=== PATIENT | female | born 1945 | race Caucasian/White ===

== ENCOUNTER → 2021-05-10 | Outpatient (CLI) | payer MEDICARE | END | disposition home or self-care (01) | LOC: LABPAT 16:24 | PROVIDERS: ATTEND Orthopaedic Surgery | DX: Z01.812 Encounter for preprocedural laboratory examination (principal); M16.11 Unilateral primary osteoarthritis, right hip | CPT/HCPCS: 87070 ==

== ENCOUNTER 2021-05-18 06:30 | Day surgery (SDC) | payer MEDICARE ==
[2021-05-14 15:32] VITALS: BMI 20.2
--- NOTE | 2021-05-17 10:24 | HP ---
HISTORY AND PHYSICAL CHIEF COMPLAINT: Right hip pain. HISTORY OF PRESENT ILLNESS: The patient is a 75-year-old retired female who presents with progressive right hip pain for the past several years, worsening over the past couple months. She has groin pain along with difficulty with weightbearing. She has been limping. She notes it severely limits her normal function and activities. PAST MEDICAL HISTORY: Significant for hypertension and hypercholesterolemia in addition to polymyalgia rheumatica. PAST SURGICAL HISTORY: Negative. CURRENT MEDICATIONS: Amlodipine, atenolol, prednisone and simvastatin. ALLERGIES: SHE DENIES DRUG ALLERGIES. FAMILY HISTORY: Significant for cancer. SOCIAL HISTORY: Negative for current tobacco or alcohol use. REVIEW OF SYSTEMS: Sixteen-point review of systems is reviewed and is significant for multiple joint complaints. PHYSICAL EXAMINATION: On examination, the patient is approximately 5 feet 2 inches, 112 pounds of mesomorphic habitus. HEENT exam is nonfocal. Neck is supple. Passive motion of the right hip: Flexion 75 degrees. External rotation of the hip: Flexion 45 degrees. Internal rotation is zero degrees with pain. She has shortening of the right lower extremity compared to the left. She has a Trendelenburg gait. Her distal neurovascular exam appears intact in the right lower extremity. X-rays to include AP and lateral views of the right hip obtained in the office show severe osteoarthrosis with [id number] changes and subchondral sclerosis. IMPRESSION: Right hip severe osteoarthrosis. RECOMMENDATIONS: I talked to the patient at length regarding her condition along with treatment options. At this point she is quite symptomatic and limited because of pain related to her right hip osteoarthrosis despite conservative measures. After thorough discussion, she opted to proceed with surgery. We will plan to proceed with right total hip arthroplasty utilizing a direct anterior approach. We will institute DVT prophylaxis postoperatively. Risks and benefits were discussed at length in layman's terms. MMODL / IJN: [id number] /
[~2021-05-18 06:30] MED LIST: ACETAMINOPHEN TAB 500 MG TAB PO PRN; MELOXICAM 7.5 MG TAB PO PRN; TRANEXAMIC ACID 1,000 MG in SODIUM CHLORIDE 0.9% 100 ML IVPB PRN
[2021-05-18] MEDS: LACTATED RINGERS 1,000 ML IV SCH ×3 (07:05→20:43)
[2021-05-18] MEDS ORDERED: LIDOCAINE 1% (10MG/ML) FOR IV START INTRADERMA ONE (07:05)
[2021-05-18 07:20] LABS: Glucose,Whole Blood 88 mg/dL (75-99)
[2021-05-18] MEDS: DEXAMETHASONE SOD PHOSPHATE 4 MG/ML 1 ML VIAL IV ONE ×2 (07:23→12:37)
[2021-05-18] MEDS: ONDANSETRON 4 MG/2 ML VIAL IVP ONE ×2 (07:23→12:38)
[2021-05-18] MEDS ORDERED: PROPOFOL 10 MG/ML 20 ML VIAL IV ONE (07:58)
[2021-05-18] MEDS ORDERED: SODIUM CHLORIDE 0.9% 100 ML BAG ONE (07:58)
[2021-05-18] MEDS ORDERED: MIDAZOLAM 2 MG/2 ML VIAL ONE (07:58)
[2021-05-18] MEDS ORDERED: KETAMINE 10 MG/ML 20 ML VIAL ONE (07:58)
[2021-05-18] MEDS ORDERED: PHENYLEPHRINE-0.9% NACL SYG 1,000 MCG/10 ML SYRINGE ONE (07:58)
[2021-05-18] MEDS ORDERED: TRANEXAMIC ACID 1,000 MG/10 ML VIAL ONE (07:58)
[2021-05-18] MEDS ORDERED: ePHEDrine SULFATE/0.9% NACL/PF 50 MG/5 ML SYRINGE IV ONE (07:58)
[2021-05-18 08:08] LABS: Basophils % (A) 0 %; Eosinophils # (A) 0.1 k/uL (0-0.7); Eosinophils % (A) 1 %; HCT 40.7 % (34.0-46.0); HGB 13.4 gm/dL (11.4-16.0); Lymphocytes # (A) 2.1 k/uL (1.0-4.8); Lymphocytes % (A) 18 %; Monocytes # (A) 0.5 k/uL (0-1.0); Monocytes % (A) 4 %; Neutrophils # (A) 8.8 k/uL (1.3-7.7); Neutrophils % (A) 76 %; Platelet Count 349 k/uL (150-450); RBC 4.19 m/uL (3.80-5.40); RDW 13.4 % (11.5-15.5); WBC 11.5 k/uL (3.8-10.6)
[2021-05-18] MEDS ORDERED: ceFAZolin 1,000 MG in SODIUM CHLORIDE 0.9% 1,000 ML IRRIGATION ONE (08:36)
[2021-05-18] MEDS ORDERED: HYDROmorphone 0.2 MG/1 ML SYRINGE IVP PRN (10:00)
[2021-05-18] MEDS ORDERED: HYDROcodone/APAP 7.5-325MG 1 EACH TAB PO PRN (10:00)
[2021-05-18] MEDS ORDERED: NALOXONE 0.4 MG/ML 1 ML VIAL IV PRN (10:00)
[2021-05-18] MEDS: HYDROmorphone 0.5 MG/0.5 ML SYRINGE IVP PRN ×2 (10:01→10:29)
--- NOTE | 2021-05-18 10:02 | P.OP ---
Date of Procedure: 05/18/21 Preoperative Diagnosis: Right hip severe osteoarthrosis Postoperative Diagnosis: Same Procedure(s) Performed: Right total hip arthroplastyanterior approachpress-fit Implants: Depuy Corail size 9, 125, standard collared femoral stem, 32+1 cobalt chrome femoral head, 50 mm [place] acetabular shell with neutral polyethylene liner. Anesthesia: spinal Surgeon: Dat Amaya French Edge Operator #1: Dorian Cronin Estimated Blood Loss (ml): 300 Pathology: other (Femoral head) Condition: stable Disposition: PACU Indications for Procedure: The patient's a 75-year-old female presents with progressive right hip pain secondary to osteoporosis despite previous conservative measures. A discussion of the risks and benefits of operative intervention versus continued conservative measures. The patient opted to proceed with surgery. Operative risks to include infection, neurovascular injury, development of blood clots, leg length discrepancy, fracture, possible component loosening/failure and need for subsequent procedures was discussed. Informed consent was obtained. Operative Findings: As below Description of Procedure: The patient was brought to the operating room, and after induction of spinal anesthesia was placed supine on the [place] table. Positioning was checked with fluoroscopy. The right hip was then prepped and draped in a normal fashion. A 12 cm incision was then made starting 2 fingerbreadths distal and 3 finger breaths posterior to the ASIS in line with the proximal femur. The skin was incised sharply. Subcutaneous tissues were divided sharply. Electrocautery was used for hemostasis. The fascia was split in line with skin incision. The interval between the sartorius and tensor fascia sowmya was then bluntly developed. The posterior fascia was opened with electrocautery. The lateral circumflex vessels were identified and cauterized prior to sectioning. A retractor was placed along the superior femoral neck as well as the anterior acetabular rim. A wide capsulotomy was performed. The neck cut was then made at a 45 angle to the shaft approximately 1 1/2 cm above the level of the lesser trochanter. The head was extracted. Attention was then paid towards preparing the acetabular. Anterior and posterior retractors were placed. The remaining capsular labral tissue sharply debrided clearly defining the acetabular margins. I began reaming with a 45 mm reamer taking care to initially medialize then reaming at 45 of abduction and 20 of anteversion. Sequential reaming is performed up to 49 mm. A trial 50 mm acetabular shell was inserted in the same orientation and was fully seated. There was good rim fit and stability. Positioning was checked with fluoroscopy. The final 50 mm acetabular shell was inserted again at 45 of abduction and 20 of anteversion. This was fully seated. There was good rim fit and stability. Again fluoroscopy was used to check the adequacy of placement. A neutral polyethylene liner was gently impacted. Care was taken to avoid any soft tissue interposition. Pulsatile lavage was utilized. Attention was then paid towards preparing the proximal femur. The central region was cleared of soft tissue. A canal finder was used to find the femoral canal. Sequential broaching was performed up to size 9 taking care to lateralize proximally. A calcar mill was used to fashion the medial calcar. There was good rotational stability. A 125 standard neck along with a 32 mm +1 head was placed. The hip was gently reduced. Fluoroscopy was used to check the adequacy of positioning along with leg lengths. I felt both were good. The hip was gently dislocated. The trial components were removed. The final size 9 collared standard press-fit femoral stem was inserted parallel to the posterior cortex. This was fully seated and there was good rotational stability. A 32 mm was 1 head was placed. This was gently impacted. The hip was then gently reduced. Final fluoroscopic view showed adequate placement implant along with yazidi of leg length. Stability was checked with 80 of external rotation and 60 of extension of the right hip. The wound was irrigated with sterile lavage. The fascia was closed with running 0 Vicryl suture. There was minimal drainage therefore a deep drain was not placed. The second dose of IV TXA was given. The subcutaneous tissues were reapproximated interrupted 2-0 Vicryl sutures. The skin was reapproximated with 3-0 subcuticular strata fix suture. Skin tape and adhesive was applied. A sterile dressing was applied. The patient was then awoken from sedation and transferred to recovery room in good condition. Blood loss was estimated at 300 mL. No complications were incurred. Sponge and needle counts were correct at the end of the case. Dorian MARI assisted during the major components is case to include exposure, bone resection, implantation, and closure.
--- NOTE | 2021-05-18 10:40 | XR ---
Limited right hip HISTORY: Status post right hip surgery Single frontal view of the right hip The patient is status post right hip arthroplasty. There is anatomic alignment. Lucencies present wit hin the soft tissues. Bone mineralization is reduced. IMPRESSION: Orthopedic follow-up
[2021-05-18] MEDS ORDERED: ONDANSETRON 4 MG/2 ML VIAL IVP ONE (11:03)
[2021-05-18] MEDS ORDERED: ONDANSETRON 4 MG/2 ML VIAL ONE (11:06)
[2021-05-18] MEDS ORDERED: LACTATED RINGERS 1,000 ML IV ONE (11:51)
--- NOTE | 2021-05-18 12:15 | XR ---
Fluoroscopy HISTORY: Hip arthroplasty 23 seconds fluoroscopy time supplied to the referring clinician. 2 intraoperative C-arm images docum ent the procedure. See dictated report from orthopedic surgery.
[2021-05-18] MEDS ORDERED: ONDANSETRON 4 MG/2 ML VIAL IVP PRN ×2 (12:22→19:36)
--- NOTE | 2021-05-18 14:27 | P.CONS ---
History of Present Illness - Reason for Consult Consult date: 05/18/21 - History of Present Illness HISTORY OF PRESENT ILLNESS This is a 75-year-old female patient of Dr. Ramirez with past medical history of hypertension, hyperlipidemia, polymyalgia rheumatica, osteoarthritis. Patient has been brought into the hospital under the care of Dr. Amaya status post right total hip arthroplasty, anterior approach. Patient is having postop nausea and vomiting. She states she is very susceptible and often has this with any procedure. Zofran has been ordered. Vital signs are stable. Blood pressure 139/74, heart rate 50, afebrile, pulse ox 99% on room air. WBC 11.5, hemoglobin 11.4, platelet count 349. Cuadra virus not detected. REVIEW OF SYSTEMS Constitutional: No fever, no chills, no night sweats. No weight change. No weakness, fatigue or lethargy. No daytime sleepiness. EENT: No headache. No blurred vision or double vision, no loss of vision. No loss of Hearing, no ringing in the ears, no dizziness. No nasal drainage or con gestion. No epistaxis. No sore throat. Lungs: No shortness of breath, cough, no sputum production. No wheezing. Cardiovascular: No chest pain, no lower extremity edema. No palpitations. No paroxysmal nocturnal dyspnea. No orthopnea. No lightheadedness or dizziness. No syncopal episodes. Abdominal: No abdominal pain. Reports nausea, reports vomiting. No diarrhea. No constipation. No bloody or tarry stools.. No loss of appetite. Genitourinary: No dysuria, increased frequency, urgency. No urinary retention. Musculoskeletal: No myalgias. No muscle weakness, no gait dysfunction, no f requent falls. No back pain. No neck pain. Mild right hip discomfort Integumentary: No wounds, no lesions. No rash or pruritus. No unusual bruising. No change in hair or nails. Neurologic: No aphasia. No facial droop. No change in mentation. No head injury. No headache. No paralysis. No paresthesia. Psychiatric: No depression. No anxiety. No mood swings. Endocrine: No abnormal blood sugars. No weight change. No excessive sweating or thirst. No cold intolerance. SOCIAL HISTORY Patient is a lifelong nonsmoker, no alcohol use, marijuana use or illicit drug u se. She lives at home with her . FAMILY HISTORY Mother at age 56 from uterine cancer. Father at age 86 from old age. Patient does not have any brothers. She has one sister that is 81 years of age with history of pacemaker and dementia. Patient has one daughter with melanoma and 3 sons with no major medical problems. PHYSICAL EXAMINATION Gen: This is a 35-year-old female. She is resting in bed appears to be somewhat uncomfortable secondary to nausea HEENT: Head is atraumatic, normocephalic. Pupils equal, round. Sclerae is anicteric. NECK: Supple. No JVD. No lymphadenopathy. No thyromegaly. LUNGS: Clear to auscultation. No wheezes or rhonchi. No intercostal retractions. HEART: Regular rate and rhythm. No murmur. ABDOMEN: Soft. Bowel sounds are present. No masses. No tenderness. EXTREMITIES: No pedal edema. No calf tenderness. Right hip surgical wound is covered with dressing. No breakthrough drainage or bleeding. NEUROLOGICAL: Patient is awake, alert and oriented x3. Cranial nerves 2 through 12 are grossly intact. ASSESSMENT AND PLAN 1. Osteoarthritis right hip status post right total hip arthroplasty, postop day #0. Continue pain management per orthopedics, PT and OT, incentive spirometry to reduce incidence of atelectasis and hospital-acquired pneumonia. 2. Postoperative nausea and vomiting, expected complication from surgery. Zofran 4 mg IV every 6 hours as needed. 3. Hypertension. Patient will be resumed on amlodipine 5 mg daily, atenolol 50 mg daily. 4. Hyperlipidemia. Continue simvastatin 20 mg at bedtime. 5. Polymyalgia rheumatica. Continue prednisone 7 mg daily. 6. Gastroesophageal reflux disease. Protonix 40 mg IV daily. 7. DVT prophylaxis. Patient is on Lovenox 40 mg subcu daily. Thank you kindly for this consultation, we will be happy to follow along with you. DISCHARGE PLAN Home. Impression and plan of care have been directed as dictated by the signing physician. Vera Landaverde nurse practitioner acting as scribe for signing physician. Past Medical History Past Medical History: Hyperlipidemia, Hypertension, Osteoarthritis (OA) Additional Past Medical History / Comment(s): polymyalgia rheumatica-daily steroids for the past 6-7 months History of Any Multi-Drug Resistant Organisms: None Reported Past Surgical History: Appendectomy Additional Past Surgical History / Comment(s): colonoscopy Past Anesthesia/Blood Transfusion Reactions: No Reported Reaction Past Psychological History: No Psychological Hx Reported Smoking Status: Never smoker Past Alcohol Use History: Occasional Past Drug Use History: None Reported - Past Family History Mother Family Medical History: No Reported History Medications and Allergies Home Medications Medication Instructions Recorded Confirmed Type Calcium Carbonate [Calcium] 600 mg PO DAILY 05/14/21 05/18/21 History Simvastatin [Zocor] 20 mg PO HS 05/14/21 05/18/21 History amLODIPine BESYLATE 5 mg PO DAILY 05/14/21 05/18/21 History atenoloL [Tenormin] 50 mg PO DAILY 05/14/21 05/18/21 History predniSONE 7 mg PO DAILY 05/14/21 05/18/21 History Allergies Allergy/AdvReac Type Severity Reaction Status Date / Time No Known Allergies Allergy Verified 05/14/21 15:11 Physical Exam Vitals: Vital Signs Temp Pulse Pulse Resp BP Pulse Ox 05/18/21 11:31 53 L 18 130/61 96 05/18/21 11:02 60 18 143/75 97 05/18/21 10:48 48 L 18 137/69 95 05/18/21 10:32 49 L 16 133/70 97 05/18/21 10:15 49 L 18 140/70 100 05/18/21 09:57 97.2 F L 63 16 96/61 99 05/18/21 06:58 98.1 F 63 16 146/76 99 Intake and Output 05/17/21 05/18/21 05/18/21 22:59 06:59 14:59 Intake Total 1051 Output Total 250 Balance 801 Intake: IV 1051 Output: Estimated Blood Loss 250 Other: Weight 51.2 kg 51.2 kg Results CBC & Chem 7: 05/18/21 07:40 Labs: Abnormal Lab Results - Last 24 Hours (Table) 05/18/21 Range/Units 07:40 WBC 11.5 H (3.8-10.6) k/uL Neutrophils # 8.8 H (1.3-7.7) k/uL
[2021-05-18] MEDS: HYDROcodone/APAP 5-325MG 1 EACH TAB PO PRN ×2 (15:20→23:39)
[2021-05-18] MEDS: PANTOPRAZOLE 40 MG/10 ML VIAL IVP SCH (15:20)
[2021-05-18] MEDS: METOCLOPRAMIDE 5 MG/ML 2 ML VIAL IVP SCH (19:58)
[2021-05-18] MEDS ORDERED: METOCLOPRAMIDE 5 MG/ML 2 ML VIAL IVP SCH (20:00)
[2021-05-18] MEDS ORDERED: SENNOSIDES-DOCUSATE SODIUM 1 EACH TAB PO SCH (21:00)
[2021-05-18] MEDS ORDERED: ATORVASTATIN 10 MG TAB PO SCH (21:00)
[2021-05-19] MEDS: METOCLOPRAMIDE 5 MG/ML 2 ML VIAL IVP SCH (07:37)
[2021-05-19] MEDS: PANTOPRAZOLE 40 MG/10 ML VIAL IVP SCH (07:43)
[2021-05-19 08:05] VITALS: BP 130/67; PULSE 68; RESP 18; TEMP 98.4
[2021-05-19] MEDS ORDERED: atenoloL 50 MG TAB PO SCH (09:00)
[2021-05-19] MEDS ORDERED: ENOXAPARIN 40 MG/0.4 ML SYRINGE SQ SCH (09:00)
[2021-05-19] MEDS ORDERED: predniSONE 5 MG TAB PO SCH (09:00)
[2021-05-19] MEDS ORDERED: predniSONE 1 MG TAB PO SCH (09:00)
[2021-05-19] MEDS ORDERED: amLODIPine 5 MG TAB PO SCH (09:00)
--- NOTE | 2021-05-19 10:53 | P.DS ---
Providers Date of admission: 05/18/2021 Expected date of discharge: 05/19/21 Attending physician: Dat Amaya Consults: 05/18/21 10:04 Consult Physician Routine Consulting Provider: Lupillo Ramirez Consult Reason/Comments: Medical Management s/p right total hip arthoplasty Do you want consulting provider notified?: Yes Primary care physician: Lupillo Ramirez MD Hospital Course: Date of admission: 05/18/2021 Date of discharge: 05/19/2021 Admission diagnosis: Right hip osteoarthritis Discharge diagnosis: same Attending physician: Dr. Amaya Surgical procedures: Right total hip arthroplasty Brief history: Patient is a 75 y/o female with a history of progressive primiary right hip osteoarthritis. At this point patient has failed conservative treatment measures and has opted to proceed with a elective right total hip arthroplasty. Hospital course: Details of patient's surgery can be found in operative report. Patient tolerated the procedure well and was subsequently transported to orthopedic floor. Patient's orthopeidc and medical care was provided daily. Patient had daily laboratory tests performed for evaluation of overall blood counts. Patient had daily physical therapy to include strengthening range of motion as well as education with walker ambulation. Patient was treated with Lovenox for their postoperative DVT prophylaxis during their inpatient stay. Patient was noted to have a relatively uneventful postoperative course. Patient reported satisfactory pain control with oral pain medications by postoperative day 1. Patient showed satisfactory progress with physical therapy. Patient moved steadily through the program and had no difficulty meeting the goals by postoperative day 1. Given patient's otherwise satisfactory course and having met physical therapy goals, plan is to discharge patient home on postoperative day 1. Discharge condition/disposition: Patient will be discharged home in stable condition. Discharge medications: Instructions are given on resumption of patient's normal daily medications per primary care recommendation, in addition patient will be prescribed [place] 5mg/325 mg; Eliquis 2.5 mg bid X 2 WEEKS. Discharge instructions: 1. Wound care and infection precautions, keep incision dry and covered while showering, no lotions, creams, moisturizers. No soaking, tubs, pools, hottubs. Do not scrub over the incision. 2. Weight-bear as tolerated with walker / cane until follow-up. 3. Ice and elevate when necessary. Do not exceed 20 minutes per hour with ice pack. 4. Utilize compression sleeve until seen at first follow up appointment. 5. Visiting nursing care. 6. Home physical therapy including home CPM. 7. Pain meds and anticoagulants per prescription. 8. Pain medication has potential to cause constipation. Increase oral fluid and fiber intake. Contact primary care provider if you have not had a bowel movement within 48 hours after discharge 9. No anti-inflammatory medication until discussed at first post operative visit, this including Motrin, Aleve, Mobic, Diclofenac. 10. Follow up in office at 2 weeks postop with Hugo Lau PA-C / Dorian Cronin PA-C 11. Follow up with your primary care doctor 7-10 days after discharge. 12. Contact [facility] with any questions, . Assessment: right hip osteoarthritis Procedures: right total hip arthroplasty Patient Condition at Discharge: Good Plan - Discharge Summary Discharge Rx Participant: No New Discharge Prescriptions: New HYDROcodone/APAP 5-325MG [[place] 5-325] 1 tab PO Q6HR PRN #28 tab PRN Reason: pain Apixaban [Eliquis] 2.5 mg PO BID #60 tab No Action predniSONE 7 mg PO DAILY atenoloL [Tenormin] 50 mg PO DAILY Simvastatin [Zocor] 20 mg PO HS amLODIPine BESYLATE 5 mg PO DAILY Calcium Carbonate [Calcium] 600 mg PO DAILY Discharge Medication List Calcium Carbonate [Calcium] 600 mg PO DAILY 05/14/21 [History] Simvastatin [Zocor] 20 mg PO HS 05/14/21 [History] amLODIPine BESYLATE 5 mg PO DAILY 05/14/21 [History] atenoloL [Tenormin] 50 mg PO DAILY 05/14/21 [History] predniSONE 7 mg PO DAILY 05/14/21 [History] Apixaban [Eliquis] 2.5 mg PO BID #60 tab 05/19/21 [Rx] HYDROcodone/APAP 5-325MG [[place] 5-325] 1 tab PO Q6HR PRN #28 tab 05/19/21 [Rx] Follow up Appointment(s)/Referral(s): Lupillo Ramirez MD [Primary Care Provider] - 05/26/21 2:00 pm Dorian Cronin PAC [PHYSICIAN PULPIT OPERATOR] - 06/03/21 11:10 am [facility], [NON-STAFF] - As Needed Patient Instructions/Handouts: Anterior Hip Replacement (DC) Activity/Diet/Wound Care/Special Instructions: Orthopedic Discharge Instructions: 1. Wound care and infection precautions, keep incision dry and covered while showering, no lotions, creams, moisturizers. No soaking, pools, hot tubs. Do not scrub over incision. 2. Weight-bear as tolerated with walker / cane until follow-up. 3. Ice and elevate when necessary. Do not exceed 20 minutes per hour with ice pack. 4. Utilize compression sleeve until seen at first follow up appointment. 5. Pain meds and anticoagulants per prescription. 6. Pain medication has potential to cause constipation. Increase oral fluid and fiber intake. Contact primary care provider if you have not had a bowel movement within 48 hours after discharge. 7. No anti-inflammatory medication until discussed at first post operative visit, this including Motrin, Aleve, Mobic, Diclofenac. 8. Follow up in office at 2 weeks postop with Hugo Lau PA-C / Dorian Cronin PA-C 9. Follow up with your primary care doctor 7-10 days after discharge. 10. Contact [facility] with any questions, . Discharge Disposition: HOME WITH HOME HEALTH SERVICES
[2021-05-19 11:11] LABS: Basophils # (A) 0.01 X 10*3/uL (0.00-0.10); Basophils % (A) 0.1 %; Eosinophils # (A) 0 X 10*3/uL (0.04-0.35); Eosinophils % (A) 0 %; HCT 30.5 % (37.2-46.3); Lymphocytes # (A) 1.36 X 10*3/uL (0.90-5.00); Lymphocytes % (A) 12.2 %; MCH 31.3 pg (27.0-32.0); MCHC 32.8 g/dL (32.0-37.0); MCV 95.3 fL (80.0-97.0); Mean Platelet Volume 9.1 fL (9.5-12.2); Monocytes # (A) 1.14 X 10*3/uL (0.20-1.00); Monocytes % (A) 10.2 %; Neutrophils # (A) 8.64 X 10*3/uL (1.80-7.70); Neutrophils % (A) 77.1 %; Platelet Count 255 X 10*3/uL (140-440); RDW 13.6 % (11.5-14.5); WBC 11.19 X 10*3/uL (4.50-10.00)
--- NOTE | 2021-05-19 11:15 | P.PN ---
Subjective Progress Note Date: 05/19/21 Principal diagnosis: Right hip osteoarthritis Patient was seen at bedside this morning resting comfortably in chair. was at bedside during encounter. Patient states she got up with physical therapy this morning was able to walk out to the hallway and up-and-down a coupl e steps. She says she is ready to go home today. Patient says she has had a bowel movement since surgery yesterday. Patient says she has been using incentive spirometer. Patient says she does have walker at home. Patient denies chest pain, fever, first breath, nausea, vomiting, change in vision, loss of bladder control. Objective - Vital Signs Vital signs: Vital Signs Temp 98.4 F 05/19/21 08:04 Pulse 68 05/19/21 08:04 Resp 18 05/19/21 08:04 BP 130/67 05/19/21 08:04 Pulse Ox 98 05/19/21 08:04 Intake & Output 05/18/21 05/19/21 05/19/21 18:59 06:59 18:59 Intake Total 1051 340 Output Total 675 Balance 376 340 Weight 51.2 kg Intake: IV 1051 Intake, IV Titration 340 Amount Lactated Ringers 1,000 ml 100 @ 0 mls/hr IV .[facility] Rx#:[id number] ceFAZolin 2 gm In Sodium 240 Chloride 0.9% 50 ml @ 100 mls/hr IVPB Q8HR [facility] Rx# :[id number] Output: Urine 425 Estimated Blood Loss 250 Other: Voiding Method Toilet Toilet - Exam Right hip: Incision is clean, dry, and intact. The mesh tape is in good condition. There is minimal soft tissue swelling and ecchymosis surrounding the medial and lateral aspects of the incision. Calf is soft, no tenderness with palpation. Plantar flexion, dorsiflexion, EHL, FHL are intact. Sensory exam to light touch throughout the extremity is intact, dorsal pedis pulses 2+. - Labs CBC & Chem 7: 05/18/21 07:40 Assessment and Plan Assessment: Right hip osteoarthritis Plan: 1. Right hip osteoarthritis - right total hip arthroplasty from yesterday, 05/18/2021. Patient stable this morning. Plan discharge home today with health services 2. Appreciate medical management 3. Pain management - stable at this time. Going home with [place] 5 mg/325 mg 4. DVT prophylaxis - Lovenox in hospital. Going home with Eliquis 2.5 mg BID x 2 weeks 5. GI prophylaxis - senna 6. Encourage incentive spirometer 7. PT/OT - weightbearing as tolerated with walker for assistance Time with Patient: Less than 30
[2021-05-19] MEDS ORDERED: METOCLOPRAMIDE 10 MG TAB PO SCH (16:00)
--- NOTE | 2021-05-20 07:33 | P.PN ---
Subjective Progress Note Date: 05/19/21 HISTORY OF PRESENT ILLNESS This is a 75-year-old female patient of Dr. Ramirez with past medical history of hypertension, hyperlipidemia, polymyalgia rheumatica, osteoarthritis. Patient has been brought into the hospital under the care of Dr. Amaya status post right total hip arthroplasty, anterior approach. Patient is having postop nausea and vomiting. She states she is very susceptible and often has this with any procedure. Zofran has been ordered. Vital signs are stable. Blood pressure 139/74, heart rate 50, afebrile, pulse ox 99% on room air. WBC 11.5, hemoglobin 11.4, platelet count 349. Cuadra virus not detected. 05/19: Patient has found today sitting up in a recliner. She states she is feeling much better today. No more nausea. Patient is on eliquis for DVT prophylaxis and we will add an Protonix for GI prophylaxis while on eliquis. Medication reconciliation reviewed. Vital signs have been stable. Repeat blood work reveals WBC 11.1, hemoglobin 10, platelet count 255. Patient is scheduled for discharge home today. REVIEW OF SYSTEMS Constitutional: No fever, no chills, no night sweats. No weight change. No weakness, fatigue or lethargy. No daytime sleepiness. EENT: No headache. No blurred vision or double vision, no loss of vision. No loss of Hearing, no ringing in the ears, no dizziness. No nasal drainage or congestion. No epistaxis. No sore throat. Lungs: No shortness of breath, cough, no sputum production. No wheezing. Cardiovascular: No chest pain, no lower extremity edema. No palpitations. No paroxysmal nocturnal dyspnea. No orthopnea. No lightheadedness or dizziness. No syncopal episodes. Abdominal: No abdominal pain. Denies nausea, Denies vomiting. No diarrhea. No constipation. No bloody or tarry stools.. No loss of appetite. Genitourinary: No dysuria, increased frequency, urgency. No urinary retention. Musculoskeletal: No myalgias. No muscle weakness, no gait dysfunction, no frequent falls. No back pain. No neck pain. Mild right hip discomfort Integumentary: No wounds, no lesions. No rash or pruritus. No unusual bruising. No change in hair or nails. Neurologic: No aphasia. No facial droop. No change in mentation. No head injury. No headache. No paralysis. No paresthesia. Psychiatric: No depression. No anxiety. No mood swings. Endocrine: No abnormal blood sugars. No weight change. No excessive sweating or thirst. No cold intolerance. PHYSICAL EXAMINATION Gen: This is a 35-year-old female. She is resting in bed appears to be somewhat uncomfortable secondary to nausea HEENT: Head is atraumatic, normocephalic. Pupils equal, round. Sclerae is anicteric. NECK: Supple. No JVD. No lymphadenopathy. No thyromegaly. LUNGS: Clear to auscultation. No wheezes or rhonchi. No intercostal retractions. HEART: Regular rate and rhythm. No murmur. ABDOMEN: Soft. Bowel sounds are present. No masses. No tenderness. EXTREMITIES: No pedal edema. No calf tenderness. Right hip surgical wound is covered with dressing. No breakthrough drainage or bleeding. NEUROLOGICAL: Patient is awake, alert and oriented x3. Cranial nerves 2 through 12 are grossly intact. ASSESSMENT AND PLAN 1. Osteoarthritis right hip status post right total hip arthroplasty, postop day #0. Continue pain management per orthopedics, PT and OT, incentive spirometry to reduce incidence of atelectasis and hospital-acquired pneumonia. 2. Postoperative nausea and vomiting, expected complication from surgery. Zofran 4 mg IV every 6 hours as needed. 3. Hypertension. Patient will be resumed on amlodipine 5 mg daily, atenolol 50 mg daily. 4. Hyperlipidemia. Continue simvastatin 20 mg at bedtime. 5. Polymyalgia rheumatica. Continue prednisone 7 mg daily. 6. Gastroesophageal reflux disease. Protonix 40 mg IV daily. 7. DVT prophylaxis. Eliquis for 1 month. Thank you kindly for this consultation, we will be happy to follow along with you. DISCHARGE PLAN Home with [facility]. Impression and plan of care have been directed as dictated by the signing physician. Vera Landaverde nurse practitioner acting as scribe for signing physician. Objective - Vital Signs Vital signs: Vital Signs Temp 98.4 F 05/19/21 08:04 Pulse 68 05/19/21 08:04 Resp 18 05/19/21 08:04 BP 130/67 05/19/21 08:04 Pulse Ox 98 05/19/21 08:04 Intake & Output 05/18/21 05/19/21 05/19/21 18:59 06:59 18:59 Intake Total 1051 340 Output Total 675 Balance 376 340 Weight 51.2 kg Intake: IV 1051 Intake, IV Titration 340 Amount Lactated Ringers 1,000 ml 100 @ 0 mls/hr IV .[facility] Rx#:[id number] ceFAZolin 2 gm In Sodium 240 Chloride 0.9% 50 ml @ 100 mls/hr IVPB Q8HR [facility] Rx# :[id number] Output: Urine 425 Estimated Blood Loss 250 Other: Voiding Method Toilet Toilet - Labs CBC & Chem 7: 05/19/21 06:40
== END 2021-05-19 11:14 | disposition home health service (06) ==
LOC: OR 06:30 → 4SSUR 09:16 → OR 05-19 11:14
PROVIDERS: ATTEND Orthopaedic Surgery
DX: M16.11 Unilateral primary osteoarthritis, right hip (principal); I10 Essential (primary) hypertension; E78.00 Pure hypercholesterolemia, unspecified; M35.3 Polymyalgia rheumatica; K21.9 Gastro-esophageal reflux disease without esophagitis; Z20.822 Contact with and (suspected) exposure to COVID-19; E78.5 Hyperlipidemia, unspecified; Z98.890 Other specified postprocedural states; Z80.49 Family history of malignant neoplasm of other genital organs; Z80.8 Family history of malignant neoplasm of other organs or systems; Z81.8 Family history of other mental and behavioral disorders; Z82.49 Family history of ischemic heart disease and other diseases of the circulatory system; Z79.52 Long term (current) use of systemic steroids; Z79.899 Other long term (current) drug therapy
CPT/HCPCS: 97161; 97535; 97165; 86900; 86901; 85025 ×2; 86850; 88300; 87635; 73501; 27130; C1776; J2250; J1100; J2765; J0690 ×3; J2405; J1650; J2370; J2704; J7512 ×2; C9113 ×2; J1170 ×2

== ENCOUNTER → 2024-10-16 | Outpatient (CLI) | payer MEDICARE ==
--- NOTE | 2024-10-16 11:21 | MR ---
EXAMINATION TYPE: MR lumbar spine wo con DATE OF EXAM: 10/16/2024 10:39 AM COMPARISON: Plain film. CLINICAL INDICATION: Female, 79 years old with history of M54.16, M54.50, M47.816; PHH, Low back pain into rt leg TECHNIQUE: Multi planar, multi sequence imaging was performed utilizing: T1-weighted, T2-weighted, a nd turbo inversion recovery imaging of the lumbar spine. IV Contrast: mL (None, if empty) FINDINGS: Alignment: The lumbar vertebral bodies have preserved heights with grade 2 anterolisthesis of L5 on S 1. Cord: The conus medullaris and the distal spinal cord appear unremarkable with regards to their signa l intensity and morphology. Bones/Discs: Multilevel disc degeneration changes with osteophyte formation, disc space narrowing, Sc hmorl's nodes, and facet joint arthropathy. Intervertebral disc signal is maintained. No abnormal in version recovery signal to suggest bony edema. Scattered high T1 high T2 signal lesions in L4 and T10 susceptibility evaluation with versus focal fat. T12-L1: No evidence of significant spinal canal stenosis or neural foraminal stenosis. L1-L2: Disc bulge and facet joint arthropathy result in mild spinal canal and moderate bilateral neur al foraminal stenosis. L2-L3: No evidence of significant spinal canal stenosis or neural foraminal stenosis. L3-L4: Disc bulge and facet joint arthropathy result in mild spinal canal and moderate bilateral neur al foraminal stenosis. L4-L5: Disc uncovering from grade 2 anterolisthesis and facet joint arthropathy with mild spinal meri l stenosis and severe right and [id number]-svmvmlev left bilateral neural foraminal stenosis. L5-S1: The disc has a rounded posterior morphology without significant spinal canal stenosis. Facet j oint arthropathy with moderate severe left and mild right neural foraminal stenosis. No significant spinal canal or neural foraminal stenosis in the remainder of the visualized levels. Other findings: None. IMPRESSION: 1. No definitive evidence of disc herniation or significant spinal canal stenosis. 2. Moderate disc degeneration with associated osteoarthritic changes. And [id number] left ne ural foraminal stenosis at L5-S1 3. Grade 2 anterolisthesis resulting in severe right and lfia-ps-heczatsm left bilateral neural fora cristin stenosis. [facility], , 10/16/2024 11:19 AM
== END | disposition home or self-care (01) ==
LOC: RADMRIMAIN 09:52
PROVIDERS: ATTEND Orthopaedic Surgery
DX: M47.26 Other spondylosis with radiculopathy, lumbar region (principal); M51.16 Intervertebral disc disorders with radiculopathy, lumbar region; M43.16 Spondylolisthesis, lumbar region; M99.73 Connective tissue and disc stenosis of intervertebral foramina of lumbar region
CPT/HCPCS: 72148

== ENCOUNTER → 2024-11-18 | Outpatient (CLI) | payer MEDICARE ==
[2024-11-18 10:19] VITALS: BP 180/101; PULSE 57; RESP 16
--- NOTE | 2024-11-18 13:29 | P.PAINPG ---
PQRS Measure Charge Sheet Comment: HISTORY OF PRESENT ILLNESS: A 79 yr old female w at side as a referral from Dr Logan presents today w severe and chronic LBP > 1 yr secondary to radiculopathy, spondylosis and facet arthropathy without myelopathy for evaluation. Pt states pain level is provoked at 6 /10 in intensity, constant, localized in the lumbar spine, predominantly axial, achy in character w occasional shooting pain towards the RLE. Pain is provoked by over activity. Pain is alleviated by PT x 6 wks which ended in Aug 2024, physician guided home stretches daily since Aug 2024, medications, manual massage, repositioning and rest. Pt is physically active and takes 30-45 min brisk walks daily. Oswestry axial pain score at 36. PMH: OA, Hyperlipidemia, HTN, Polymyalgia Rheumatica PSH: R Hip Arthroplasty (2020), Appendectomy, Colonoscopy SH: Never smoker, Occ ETOH use, No illicit drug use FH: Non contributory All: See list Meds: See list incl Tyl REVIEW OF ORGAN SYSTEMS: CONSTITUTIONAL: No fevers or chills. No recent weight loss. NEUROLOGICAL: + numbness and tingling along the distal extremities. No seizure disorders or headaches. MUSCULOSKELETAL: + pain PSYCHIATRIC: Denies current depression or suicidal thoughts. Physical Examinations : Constitutional : Cooperative , not in acute distress . Neurologic : Cranial nerve II to XII intact. No focal neurological deficits. Psychiatric : alert & oriented x 3. Matching mood & appropriate affect. Judgment & insight intact. Musculoskeletal : Cervical Spine Motor strength in the deltoid and biceps: Normal right side. Normal Left side Motor strength biceps and the wrist extensors: Normal right side . Normal left side Motor strength in the triceps muscle: Normal right side. Normal left side Deep tendon reflexes: Normal at the biceps. Normal at Brachioradialis. Normal at triceps Vertebral body tenderness to deep palpation over Cervical facet loading test: positive bilaterally Spurling test: positive bilaterally Neck distraction test: positive bilaterally Jorge sign: positive bilaterally Lumbar spine Motor strength lower extremities ,thigh and legs 5/5 Right side , 5/5 Left side Deep tendon reflexes : Normal Knee Jerk. Normal Ankle Jerk Vertebral body tenderness over L4 Palmer Test positive R L4-L5 Lumbar facet Loading Test: positive Right / positive Left Range of motion of the lumbar spine Flexion 30 degrees, extension 10 degrees Straight Leg Raise test: Left/ Right positive at degrees Pastora test: positive right / positive left. Severe tenderness over the Sacroiliac joint on the Right / Left sides Gaenslen test: positive bilaterally Seated flexion test: positive bilaterally. Sacral spine : Severe tenderness over the Sacroiliac joint: right side / left side Range of motion: Flexion of the lumbar spine <60 degrees Range of motion: Extension of the lumbar spine <20 degrees Gaenslen's Test positive Pastora test: positive right side / left side Thigh Thrust Test Sacral Thrust Test Imaging: MRI noncontrast of the lumbar spine from 10/16/2024 reviewed Assessment/ Plan : L4-L5 radiculopathy Recommendation of R TFESI L4-L5 #1. Risks, benefits of procedure discussed and patient verbalized understanding. Admits to anti- coagulant use or medical history of diabetes. Protocol for discontinuation/ continuation of medications cristina procedure discussed. All questions answered. I have spent greater than 30 minutes on patient care today. Dr Rivers was available by phone for the evaluation of this patient. The time was used to review the medical records including relevant urine studies and Prescription history (MAPs), review of the available imaging, evaluation and examination of the patient, coordination of care with the medical staff and if applicable referring physicians, as well as creation of the medical record Home Medications: Ambulatory Orders Calcium Carbonate [Calcium] 600 mg PO DAILY 05/14/21 Simvastatin [Zocor] 20 mg PO HS 05/14/21 amLODIPine BESYLATE 5 mg PO DAILY 05/14/21 atenoloL [Tenormin] 50 mg PO DAILY 05/14/21 predniSONE 7 mg PO DAILY 05/14/21 HYDROcodone/APAP 5-325MG [[place] 5-325] 1 tab PO Q6HR PRN #28 tab 05/19/21 Pantoprazole [Protonix] 40 mg PO DAILY #30 tab 05/19/21 Sennosides-Docusate Sodium [Senokot-S] 2 each PO HS tab 05/19/21 Controlled Substance Measures - Controlled Substance Measures Is patient prescribed a controlled substance at discharge?: No
== END ==
LOC: PNWHC3 09:37
PROVIDERS: ATTEND Specialist
DX: M47.26 Other spondylosis with radiculopathy, lumbar region (principal)
CPT/HCPCS: 99211

== ENCOUNTER 2024-11-22 08:36 | Day surgery (SDC) | payer MEDICARE ==
[2024-11-22 08:58] LABS: Glucose,Whole Blood 106 mg/dL (70-110)
[2024-11-22 08:59] VITALS: TEMP 98
[2024-11-22] MEDS ORDERED: methylPREDNISolone ACETATE 40 MG/ML 1 ML VIAL ONE (09:36)
[2024-11-22] MEDS ORDERED: IOPAMIDOL M200 10 ML VIAL ONE (09:36)
--- NOTE | 2024-11-22 09:45 | P.PCN ---
Date of Procedure: 11/22/24 Procedure(s) Performed: PREOPERATIVE DIAGNOSIS: 1-Lumbar radiculopathy . 2-lumbar Spinal stenosis. 3-lumbar spondylosis with lumbar facet arthropathy without myelopathy POSTOPERATIVE DIAGNOSIS: 1-lumbar radiculopathy. 2-lumbar spinal stenosis. 3- lumbar spondylosis with facet arthropathy without myelopathy PROCEDURE 1. Transforaminal epidural steroid injection under fluoroscopic guidance at right L4-5 level. (Fluoroscopy images stored on file in the radiology Department ) 2. Lumbar epidurogram . ANESTHESIA: Local with 1% lidocaine 3 ml. EBL: Minimal PROCEDURE INDICATION: The patient with low back pain and radiculopathy symptoms unresponsive to conservative treatment. PROCEDURE DESCRIPTION / TECHNIQUE: The patient was seen and identified in the preoperative area. Risks, benefits, complications, and alternatives were discussed with the patient. The patient agreed to proceed with the procedure and signed the consent. IV was started, and vital signs were stable. Patient was taken to the OR and time out was completed. The patient was placed in the prone position on procedure table and a pillow was placed under the abdomen to reduce lumbar lordosis. The lumbosacral area was prepped and draped in the usual sterile fashion. Critical pause was taken. Vital signs were closely monitored during the procedure. Using oblique fluoroscopy, the chin of the ``Dontae dog at Right L4-5 level was identified, and the skin and deeper tissues just below was localized with 1% lidocaine. Subsequently, a 23-gauge 3.5-inch spinal needle was advanced under a tunneled view fluoroscopic guidance just underneath the chin of the ``Dontae dog at the right L4-5 Under lateral fluoroscopy, the needle was then advanced to the posterior border of the interforaminal space. After negative aspiration of CSF and blood and with no paresthesias, 1 mL Isovue 200 contrast dye was injected excellent epidurogram and outlining of the nerve root Subsequently, 3 mL of block solution containing 40 mg Depo-Medrol and 2 mL of 0.9% normal saline PF was injected. Needle was removed . At the end of the procedure, skin was cleansed, and bandages were applied. COMPLICATIONS:none DISPOSITION / PLANS: The patient was placed in a supine position and transferred to the recovery area in a stable condition for observation. There was no evidence of lower extremity motor or sensory deficit after the procedure. Patient was discharged from the recovery room after meeting discharge criteria. Home discharge instructions were given to the patient by the staff. The patient was reexamined prior to discharge.
[2024-11-22 09:53] VITALS: RESP 16
[2024-11-22 10:04] VITALS: PULSE 61
[2024-11-22 10:18] VITALS: BP 176/89
--- NOTE | 2024-11-22 10:18 | FL ---
Fluoroscopy INDICATION: Pain FINDINGS: Fluoroscopy time: 3.7 seconds. Total dose area product (DAP) in uGy*m?, mGy*cm? (or similar): 0.62732 Images obtained: 2. Images document needle directed towards the lumbar spine IMPRESSION: 1. Documentation of fluoroscopy. [facility], , 11/22/2024 10:16 AM
== END 2024-11-22 10:20 | disposition home or self-care (01) ==
LOC: ORPAIN 08:36
PROVIDERS: ATTEND Specialist
DX: M47.26 Other spondylosis with radiculopathy, lumbar region (principal); M48.061 Spinal stenosis, lumbar region without neurogenic claudication
CPT/HCPCS: 64483; Q9966; J1010

== ENCOUNTER → 2024-12-19 | Outpatient (CLI) | payer MEDICARE ==
[2024-12-19 11:33] VITALS: BP 173/100; PULSE 88; TEMP 98.2
[2024-12-19 11:36] VITALS: RESP 15
--- NOTE | 2024-12-19 14:52 | P.PAINPG ---
Objective - Vital Signs Vital signs: Vital Signs Temp 98.2 F 12/19/24 11:33 Pulse 88 12/19/24 11:33 Resp 15 12/19/24 11:33 BP 173/100 12/19/24 11:33 Pulse Ox 97 12/19/24 11:33 FiO2 Intake & Output 12/18/24 12/19/24 12/19/24 18:59 06:59 18:59 Weight 49.895 kg PQRS Measure Charge Sheet Mode of Arrival: Ambulatory Comment: HISTORY OF PRESENT ILLNESS: A 79 yr old female w at side presents today w severe and chronic LBP > 1 yr secondary to radiculopathy, spondylosis and facet arthropathy without myelopathy for evaluation s/p R TFESI L4-L5 #1. Pt states she experienced 0% pain relief s/p procedure. Pt states pain level is provoked at 6 /10 in intensity, constant, localized in the lumbar spine, predominantly axial, achy in character w occasional shooting pain towards the RLE. Pain is provoked by over activity. Pain is alleviated by PT x 6 wks which ended in Aug 2024, physician guided home stretches daily since Aug 2024, medications, manual massage, repositioning and rest. Pt is physically active and takes 30-45 min brisk walks daily. Oswestry axial pain score at 36. Interventional procedures include R TFESI L4-L5 x1 (12/06) Medications include Tyl REVIEW OF ORGAN SYSTEMS: CONSTITUTIONAL: No fevers or chills. No recent weight loss. NEUROLOGICAL: + numbness and tingling along the distal extremities. No seizure disorders or headaches. MUSCULOSKELETAL: + pain PSYCHIATRIC: Denies current depression or suicidal thoughts. Physical Examinations : Constitutional : Cooperative , not in acute distress . Neurologic : Cranial nerve II to XII intact. No focal neurological deficits. Psychiatric : alert & oriented x 3. Matching mood & appropriate affect. Judgment & insight intact. Musculoskeletal : Cervical Spine Motor strength in the deltoid and biceps: Normal right side. Normal Left side Motor strength biceps and the wrist extensors: Normal right side . Normal left side Motor strength in the triceps muscle: Normal right side. Normal left side Deep tendon reflexes: Normal at the biceps. Normal at Brachioradialis. Normal at triceps Vertebral body tenderness to deep palpation over Cervical facet loading test: positive bilaterally Spurling test: positive bilaterally Neck distraction test: positive bilaterally Jorge sign: positive bilaterally Lumbar spine Motor strength lower extremities ,thigh and legs 5/5 Right side , 5/5 Left side Deep tendon reflexes : Normal Knee Jerk. Normal Ankle Jerk Vertebral body tenderness over L4 Palmer Test positive R L4-L5 Lumbar facet Loading Test: positive Right / positive Left Range of motion of the lumbar spine Flexion 30 degrees, extension 10 degrees Straight Leg Raise test: Left/ Right positive at degrees Pastora test: positive right / positive left. Severe tenderness over the Sacroiliac joint on the Right / Left sides Gaenslen test: positive bilaterally Seated flexion test: positive bilaterally. Sacral spine : Severe tenderness over the Sacroiliac joint: right side / left side Range of motion: Flexion of the lumbar spine <60 degrees Range of motion: Extension of the lumbar spine <20 degrees Gaenslen's Test positive Pastora test: positive right side / left side Thigh Thrust Test Sacral Thrust Test Imaging: MRI noncontrast of the lumbar spine from 10/16/2024 reviewed Assessment/ Plan : L4-L5 radiculopathy Recommendation of R paramedian ELIOT L4-L5 #2. Risks, benefits of procedure discussed and patient verbalized understanding. Admits to anti- coagulant use or medical history of diabetes. Protocol for discontinuation/ continuation of medications cristina procedure discussed. All questions answered. I have spent greater than 30 minutes on patient care today. Dr Rivers was available by phone for the evaluation of this patient. The time was used to review the medical records including relevant urine studies and Prescription history (MAPs), review of the available imaging, evaluation and examination of the patient, coordination of care with the medical staff and if applicable referring physicians, as well as creation of the medical record - Pain Location Lower Back Pharmacological Interventions: Medication PQRS Narrative: Blood Pressure 173/100 Pain Intensity [Lower Back] 4 Scale Used Numeric (1 - 10) Hx Alcohol Use (MH) No Home Medications: Ambulatory Orders atenoloL [Tenormin] 50 mg PO DAILY 05/14/21 predniSONE 7 mg PO DAILY 05/14/21 Losartan [Cozaar] 25 mg PO DAILY 11/18/24 Simvastatin [Zocor] 20 mg PO HS 11/22/24 Controlled Substance Measures - Controlled Substance Measures Is patient prescribed a controlled substance at discharge?: No
== END ==
LOC: PNWHC3 10:43
PROVIDERS: ATTEND Specialist
DX: M47.26 Other spondylosis with radiculopathy, lumbar region (principal)
CPT/HCPCS: 99212

== ENCOUNTER → 2024-12-25 | Outpatient (CLI) | payer MEDICARE ==
--- NOTE | 2024-12-25 12:38 | XR ---
EXAMINATION TYPE: XR shoulder complete LT DATE OF EXAM: 12/25/2024 11:54 AM COMPARISON: None CLINICAL INDICATION: Female, 79 years old with history of M25.512 PAIN IN LEFT SHOULDER; PHH, pain TECHNIQUE: XR shoulder complete LT; examined in AP, internally rotated and scapular Y projections. FINDINGS: No evidence of acute osseous pathology, joint dislocation, or soft tissue swelling. The remaining po rtions of the visualized chest are unremarkable. Degeneration changes of the acromion, distal clavic le with osteophyte formation. There is osteophyte formation of the glenoid and humeral head. There is joint space narrowing of glenohumeral joint. IMPRESSION: 1. No acute osseous pathology. 2. Moderate glenohumeral shoulder osteoarthrosis. [facility], , 12/25/2024 12:36 PM
== END | disposition home or self-care (01) ==
LOC: RADXRMAIN 11:39
PROVIDERS: ATTEND Physician Assistant
DX: M19.012 Primary osteoarthritis, left shoulder (principal)